=== PATIENT | male | born 1965 | race Caucasian/White ===

== ENCOUNTER 2017-08-22 18:19 | Emergency (ER) | payer OTHER ==
[~2017-08-22] VITALS: Ht 185.4 cm; Wt 134.3 kg
--- OUTSIDE RECORDS SUMMARY | 2017-08-22 18:22 | XMS REPORT | Clinical Summary ---
Author Author [facility] [place] [facility] Address Unknown Phone Unavailable Care Team Providers Care Commercial Counsel Name Role Phone Chin Lopez MD PCP Allergies Active Allergy Reactions Severity Noted Date Comments Tramadol 09/15/2016 Current Medications Prescription Sig. Disp. Refills Start End Date Status Date amoxicillin-pot TK 1 T PO BID 0 09/10/19 Active clavulanate (AUGMENTIN) 17 875-125 mg per tablet azithromycin (ZITHROMAX) TK 2 TS PO FOR 1 DAY THEN 0 06/28/19 Active 250 MG tablet TK 1 T PO D FOR 4 DAYS 17 bisoprolol-hydrochlorothi TK 1 T PO QD 0 08/16/19 Active azide (ZIAC) 2.5-6.25 mg 17 per tablet ONETOUCH VERIO strip test TEST ONCE D UTD 5 08/20/19 Active strips 17 ciprofloxacin (CIPRO) 500 TK 1 T PO BID FOR 10 DAYS 0 09/02/19 Active MG tablet 17 fenofibrate (LOFIBRA) 160 TK 1 T PO QD 2 08/03/19 Active MG tablet 17 gabapentin (NEURONTIN) TK 3 CS PO NIGHTLY 2 3 08/05/19 Active 300 mg capsule HOURS BEFORE BEDTIME 17 ONETOUCH DELICA LANCETS USE UTD 5 08/20/19 Active 30 gauge misc 17 levothyroxine (SYNTHROID, TK 1 T PO QD IN THE 0 08/16/19 Active LEVOXYL) 88 mcg tablet MORNING OES 17 TRINTELLIX 10 mg tablet TK 1 T PO QD 0 07/29/19 Active 17 rosuvastatin (CRESTOR) 10 TK 1 T PO QD 2 08/20/19 Active MG tablet 17 metroNIDAZOLE (FLAGYL) TK 1 T PO TID 0 09/10/19 Active 500 MG tablet 17 metFORMIN (GLUCOPHAGE) TK 1 T PO BID WC 2 08/20/19 Active 500 mg tablet 17 Active Problems Problem Noted Date Cancer of left kidney 10/13/2016 Left renal mass 09/15/2016 Encounters Date Type Specialty Care Team Description 10/13/2016 Office Visit Urology Vivienne Pino MD Cancer of left kidney (Primary Dx) 10/05/2016 [facility] General Surgery Vivienne Pino MD - Encounter Tori Perez MD 10/07/2016 10/03/2016 Orders Only General Surgery Vivienne Pino MD 09/15/2016 Office Visit Urology Vivienne Pino MD Left renal mass (Primary Dx) 09/01/2016 [facility] Internal Medicine Physician, Emergency, MD - Encounter Tori Perez MD 09/09/2016 after 08/21/2016 Family History Medical History Relation Name Comments Cancer Father Heart disease Mother Hyperlipidemia Mother Hypertension Mother Relation Name Status Comments Father Mother Social History Tobacco Use Types Packs/Day Years Used Date Never Smoker Alcohol Use Drinks/Week oz/Week Comments No Sex Assigned at Date Recorded Not on file Last Filed Vital Signs Vital Sign Reading Time Taken Blood Pressure 112/73 10/13/2016 2:47 PM CDT Pulse 79 10/13/2016 2:47 PM CDT Temperature 36.8 C (98.3 F) 10/13/2016 2:47 PM CDT Respiratory Rate - - Oxygen Saturation - - Inhaled Oxygen - - Concentration Weight 128 kg (282 lb 6.4 oz) 10/13/2016 2:47 PM CDT Height 185.4 cm (6' 1") 09/15/2016 8:49 AM CDT Body Mass Index 37.26 10/13/2016 2:47 PM CDT Plan of Treatment Health Maintenance Due Date Last Done Comments COLONOSCOPY 2016 INFLUENZA VACCINE 01/17/2017 Results * POC glucose (10/07/2016 11:27 AM) Only the most recent of 34 results within the time period is included. Component Value Ref Range POC glucose 173 (H) 65 - 100 mg/dL Comment: Meter ID: [id number] Multifocal Lens Inspector: Ana M Whitley Specimen Performing Laboratory [facility] DEPARTMENT OF PATHOLOGY AND GENOMIC MEDICINE [address] [place] [address] * Estimated GFR (10/07/2016 5:54 AM) Only the most recent of 11 results within the time period is included. Component Value Ref Range GFR Non Af Amer 71 mL/min/1.73 m2 GFR Af Amer 86 mL/min/1.73 m2 Comment: Chronic kidney disease: <60 mL/min/1.73m2 Kidney failure: <15 mL/min/1.73m2 The estimated GFR is calculated from the IDMS-traceable Modification of Diet in Renal Disease Equation. The accuracy of the calculation is poor when the creatinine is normal. Calculated values >90 mL/min/1.73m2 are not reported. This equation has not been validated in children (<18 years), women, the elderly (>70 years), or ethnic groups other than Caucasians and Americans. Specimen Performing Laboratory [facility] DEPARTMENT OF PATHOLOGY AND GENOMIC MEDICINE [address] [place] [address] * CBC with platelet and differential (10/07/2016 5:54 AM) Only the most recent of 10 results within the time period is included. Component Value Ref Range WBC 12.5 (H) 4.2 - 11.0 k/uL RBC 4.12 4.04 - 5.86 m/uL HGB 12.3 (L) 13.0 - 17.3 g/dL HCT 37.7 34.0 - 45.0 % MCV 91.5 80.0 - 98.0 fL MCH 29.9 27.0 - 34.0 pg MCHC 32.6 31.5 - 36.5 g/dL RDW - SD 50.2 37.0 - 51.0 fL MPV 9.7 7.4 - 10.4 fL Platelet count 286 150 - 400 k/uL Nucleated RBC 0.00 /100 WBC Neutrophils 77.6 (H) 36.0 - 66.0 % Lymphocytes 13.9 (L) 24.0 - 44.0 % Monocytes 6.6 (H) 0.0 - 6.0 % Eosinophils 1.2 0.0 - 6.0 % Basophils 0.2 0.0 - 1.2 % Immature granulocytes 0.5 0.0 - 1.0 % Specimen Performing Laboratory [facility] DEPARTMENT OF PATHOLOGY AND GENOMIC MEDICINE [address] [place] [address] * Phosphorus level (10/07/2016 5:54 AM) Component Value Ref Range Phosphorus 2.1 (L) 2.5 - 4.5 mg/dL Specimen Performing Laboratory [facility] DEPARTMENT OF PATHOLOGY AND GENOMIC MEDICINE [address] [place] [address] * Magnesium level (10/07/2016 5:54 AM) Component Value Ref Range Magnesium 2.00 1.60 - 2.40 mg/dL Specimen Performing Laboratory [facility] DEPARTMENT OF PATHOLOGY AND GENOMIC MEDICINE [facility] [place] [address] * Basic metabolic panel (10/07/2016 5:54 AM) Only the most recent of 9 results within the time period is included. Component Value Ref Range Sodium 136 135 - 150 mEq/L Potassium 3.8 3.5 - 5.0 mEq/L Chloride 101 100 - 109 mEq/L CO2 26 24 - 32 mmol/L Anion gap 9 7 - 15 mEq/L Comment: Starting from September , anion gap calculation no longer incorporates potassium. Please note the change. BUN 7 7 - 18 mg/dL Creatinine 1.1 0.8 - 1.5 mg/dL Glucose 131 (H) 65 - 100 mg/dL Calcium 8.4 (L) 8.6 - 10.7 mg/dL Specimen Performing Laboratory [facility] DEPARTMENT OF PATHOLOGY AND GENOMIC MEDICINE [facility] [place] [address] * Hemoglobin (10/05/2016 5:39 PM) Component Value Ref Range HGB 13.0 13.0 - 17.3 g/dL Specimen Performing Laboratory [facility] DEPARTMENT OF PATHOLOGY AND [facility] MEDICINE [facility] [place] [address] * Hematocrit (10/05/2016 5:39 PM) Component Value Ref Range HCT 40.7 34.0 - 45.0 % Specimen Performing Laboratory [facility] DEPARTMENT OF PATHOLOGY AND [facility] MEDICINE [facility] [place] [address] * Partial thromboplastin time, activated (10/05/2016 11:48 AM) Component Value Ref Range PTT 26.8 23.0 - 36.0 sec Comment: PTT therapeutic range for unfractionated heparin is 61.0-112.0 seconds which corresponds to Anti-Xa 0.3-0.7 U/ml. Note: Change in Panic Value The PTT Panic Value is changing from 110 sec. to 100 sec. due to new instrumentation and reagents. Correlation studies have been performed to validate this result. Specimen Performing Laboratory [facility] DEPARTMENT OF PATHOLOGY AND GENOMIC MEDICINE [facility] [place] [address] * Prothrombin time with INR (10/05/2016 11:48 AM) Only the most recent of 2 results within the time period is included. Component Value Ref Range Prothrombin time 12.5 12.0 - 15.0 sec INR 0.93 0.92 - 1.12 Comment: For patients on anticoagulant therapy, reference ranges below: Indication: INR Value Treatment of Venous Thrombosis, 2.0-3.0 pulmonary emboli, or prophylaxis of a venous thrombosis, or systemic emboli. High dose, high risk patients 3.0-4.5 with mechanical valves. NOTE: INR values over 3.0 are sometimes associated with gastrointestinal hemorrhage, especially values over 4.0. Specimen Performing Laboratory [facility] DEPARTMENT OF PATHOLOGY AND GENOMIC MEDICINE [address] [facility] [place] [address] * Type and screen (10/05/2016 11:48 AM) Component Value Ref Range ABO grouping O Rh type POS Antibody screen (gel) NEG Specimen Performing Laboratory [facility] DEPARTMENT OF PATHOLOGY AND GENOMIC MEDICINE [address] [place] [address] [place] [address] * Surgical pathology request (10/05/2016 9:33 AM) Specimen Performing Laboratory Other [facility] DEPARTMENT OF PATHOLOGY AND GENOMIC MEDICINE [address] [place], [place] [id number] * XR Chest 2 Vw (10/03/2016 11:35 AM) Specimen Performing Laboratory [facility] [address] [place] [id number] Narrative Examination:CHEST 2 VIEW PA AP LATERAL Clinical History: preop Comparison: March 03, 2014 Technique: Frontal and lateral views of the chest Impression: Subsegmental basilar atelectasis. Lungs otherwise clear. No pulmonary edema or pleural effusion. The heart is normal in size. Bones are grossly intact. Prominent lower thoracic kyphosis is similar to prior. [facility]-[id number] Procedure Note Interface, Radiology Conversion - 10/03/2016 11:53 AM CDT Examination: CHEST 2 VIEW PA AP LATERAL Clinical History: preop Comparison: March 03, 2014 Technique: Frontal and lateral views of the chest Impression: Subsegmental basilar atelectasis. Lungs otherwise clear. No pulmonary edema or pleural effusion. The heart is normal in size. Bones are grossly intact. Prominent lower thoracic kyphosis is similar to prior. [facility]-[id number] * Urinalysis, automated with microscopy (10/03/2016 11:12 AM) Component Value Ref Range Color, UA Yellow Appearance, UA Clear Specific gravity, UA 1.017 1.001 - 1.035 pH, UA 5.0 5.0 - 8.5 Protein, UA Negative Negative Glucose, UA Negative Negative Ketones, UA Negative Negative Bilirubin, UA Negative Negative Blood, UA Negative Negative Nitrite, UA Negative Negative Urobilinogen, UA Negative <2.0 Leukocyte esterase, UA Trace (A) Negative Epithelial cells, UA Few /HPF WBC, UA 1 0 - 1 /HPF RBC, UA 4 (H) 0 - 1 /HPF Bacteria, UA Trace None seen Yeast, UA None seen Yeast with pseudohyphae, None seen UA Specimen Performing Laboratory [facility] DEPARTMENT OF PATHOLOGY AND GENOMIC MEDICINE [address] [facility] [place] [address] * CBC hemogram (10/03/2016 11:12 AM) Component Value Ref Range WBC 7.9 4.2 - 11.0 k/uL RBC 4.63 4.04 - 5.86 m/uL HGB 13.5 13.0 - 17.3 g/dL HCT 41.1 34.0 - 45.0 % MCV 88.8 80.0 - 98.0 fL MCH 29.2 27.0 - 34.0 pg MCHC 32.8 31.5 - 36.5 g/dL RDW - SD 46.2 37.0 - 51.0 fL MPV 10.5 (H) 7.4 - 10.4 fL Platelet count 299 150 - 400 k/uL Nucleated RBC 0.00 /100 WBC Specimen Performing Laboratory [facility] DEPARTMENT OF PATHOLOGY AND GENOMIC MEDICINE [address] [facility] [place] [address] * ECG 12 lead (10/03/2016 11:07 AM) Component Value Ref Range Ventricular rate 71 Atrial rate 71 NC interval 150 QRSD interval 100 QT interval 396 QTC interval 430 P axis 1 32 QRS axis 1 -6 T wave axis 18 EKG impression Normal sinus rhythm-Incomplete right bundle branch block-Borderline ECG-In automated comparison with ECG of 04-DEC-2008 11:15,-No significant change was found- Specimen Performing Laboratory [facility] [address] [place] [id number] * Manual differential (09/09/2016 6:24 AM) Only the most recent of 2 results within the time period is included. Component Value Ref Range Manual differential PERFORMED Neutrophils 78.0 (H) 36.0 - 66.0 % Lymphocytes 13.0 (L) 24.0 - 44.0 % Monocytes 6.0 0.0 - 6.0 % Eosinophils 2.0 0.0 - 6.0 % Basophils 0.0 0.0 - 1.2 % Metamyelocytes 0 0 - 1 % Promyelocytes 0 0 - 1 % Reactive lymphocytes 1.0 Platelet slide review Increased (A) Anisocytosis Slight Specimen Performing Laboratory [facility] DEPARTMENT OF PATHOLOGY AND GENOMIC MEDICINE [address] [place] [address] * C difficile toxin gene, ANDREAS (PCR) (09/05/2016 7:50 AM) Component Value Ref Range Clostridium difficile Positive for C. difficile toxin toxin Specimen Performing Laboratory Other [facility] DEPARTMENT OF PATHOLOGY AND GENOMIC MEDICINE [address] [place] [id number] Narrative Specimen Site is : : Nonpreserved Specimen Source is : Stool * CT Abdomen Pelvis W Contrast (09/03/2016 4:03 PM) Specimen Performing Laboratory [address] [address] Narrative EXAMINATION:CT ABDOMEN W PELVIS W CLINICAL HISTORY:ruptured sigmoid diverticulitis TECHNIQUE: Multiple axial images of the abdomen and pelvis were obtained following intravenous administration of iodinated contrast. Sagittal and coronal computerized reformatted images were also obtained. CT imaging was performed with iterative reconstruction techniques and/or automated exposure control to reduce radiation dose. COMPARISON:None. IMPRESSION: 1.There are findings of diverticulitis with perforation. Moderate segmental thickening of the sigmoid colon, perisigmoid mesenteric edema, and several small gas loculations in the adjacent sigmoid mesentery, are the associated findings. There is no obstruction or abscess. The stomach, small bowel, and appendix are normal. 2.There is diffuse fatty liver infiltration, but no focal liver lesion. The spleen, pancreas, gallbladder, adrenal glands, kidneys, ureters, and urinary bladder are unremarkable. 3.There is no significant lymphadenopathy. Vascular structures are unremarkable. 4.There is no significant skeletal finding. [facility]-[id number] Procedure Note Hm Interface, Radiology Conversion - 09/03/2016 5:38 PM CDT EXAMINATION: CT ABDOMEN W PELVIS W CLINICAL HISTORY: ruptured sigmoid diverticulitis TECHNIQUE: Multiple axial images of the abdomen and pelvis were obtained following intravenous administration of iodinated contrast. Sagittal and coronal computerized reformatted images were also obtained. CT imaging was performed with iterative reconstruction techniques and/or automated exposure control to reduce radiation dose. COMPARISON: None. IMPRESSION: 1.There are findings of diverticulitis with perforation. Moderate segmental thickening of the sigmoid colon, perisigmoid mesenteric edema, and several small gas loculations in the adjacent sigmoid mesentery, are the associated findings. There is no obstruction or abscess. The stomach, small bowel, and appendix are normal. 2.There is diffuse fatty liver infiltration, but no focal liver lesion. The spleen, pancreas, gallbladder, adrenal glands, kidneys, ureters, and urinary bladder are unremarkable. 3.There is no significant lymphadenopathy. Vascular structures are unremarkable. 4.There is no significant skeletal finding. [facility]-[id number] * Hemoglobin A1c (09/02/2016 4:18 AM) Component Value Ref Range Hemoglobin A1C 7.2 (H) 4.0 - 6.0 % Comment: Less than 6% - Goal of therapy for Type II Diabetes Less than 7%-Goal of therapy for Type I Diabetes Less than 8%-Acceptable control for Type I or Type I I Diabetes Greater than 8%- Unacceptable control; action indicated. (A [id number]) Specimen Performing Laboratory [facility] DEPARTMENT OF PATHOLOGY AND GENOMIC MEDIC[place] [address] * Lipid panel (09/02/2016 4:18 AM) Component Value Ref Range Cholesterol 130 120 - 200 mg/dL Triglycerides 104 50 - 150 mg/dL HDL cholesterol 37 (L) 40 - 60 mg/dL LDL cholesterol 79Comment: Result obtained by direct LDL mg/dL measurement Specimen Performing Laboratory [facility] DEPARTMENT OF PATHOLOGY AND GENOMIC MEDICINE [place] [address] * Comprehensive metabolic panel (09/02/2016 4:18 AM) Only the most recent of 2 results within the time period is included. Component Value Ref Range Sodium 136 135 - 150 mEq/L Potassium 3.5 3.5 - 5.0 mEq/L Chloride 100 100 - 109 mEq/L CO2 24 24 - 32 mmol/L Anion gap 12 7 - 15 mEq/L Comment: Starting from September , anion gap calculation no longer incorporates potassium. Please note the change. BUN 12 7 - 18 mg/dL Creatinine 1.2 0.8 - 1.5 mg/dL Glucose 98 65 - 100 mg/dL Calcium 8.1 (L) 8.6 - 10.7 mg/dL Albumin 3.4 3.2 - 5.0 g/dL Protein 7.1 6.3 - 8.2 g/dL A/G ratio 0.9 0.7 - 3.8 Alkaline phosphatase 52 30 - 120 U/L AST 15 15 - 37 U/L ALT 27 (L) 30 - 65 U/L Total bilirubin 0.8 0.2 - 1.2 mg/dL Specimen Performing Laboratory [facility] DEPARTMENT OF PATHOLOGY AND GENOMIC MEDICINE [address] [place] [address] * Blood culture, aerobic & anaerobic (09/01/2016 6:56 PM) Only the most recent of 2 results within the time period is included. Component Value Ref Range Blood culture isolate No growth after 5 days of incubation. Specimen Performing Laboratory Other - Blood [facility] DEPARTMENT OF PATHOLOGY AND GENOMIC MEDICINE [address] [place] [address] Narrative Specimen Site is : Antecubital Arm Left Specimen Source is : Blood * Lactic acid level (09/01/2016 6:52 PM) Component Value Ref Range Lactic acid 1.3 0.5 - 2.2 mmol/L Specimen Performing Laboratory [facility] DEPARTMENT OF PATHOLOGY AND GENOMIC MEDICINE [address] [place] [address] [place] [address] * Urine culture screen (09/01/2016 5:50 PM) Component Value Ref Range Color, UA Yellow Appearance, UA Clear Specific gravity, UA >1.060 (H) 1.001 - 1.035 pH, UA 5.0 5.0 - 8.5 Protein, UA Negative Negative Glucose, UA 1+ (A) Negative Ketones, UA Negative Negative Bilirubin, UA Negative Negative Blood, UA Trace (A) Negative Nitrite, UA Negative Negative Urobilinogen, UA Negative <2.0 Leukocyte esterase, UA Negative Negative WBC, UA <1 0 - 1 /HPF RBC, UA <1 0 - 1 /HPF Bacteria, UA None seen None seen Yeast, UA None seen Yeast with pseudohyphae, None seen UA Specimen Performing Laboratory [facility] DEPARTMENT OF PATHOLOGY AND GENOMIC MEDICINE [address] [place] [address] after 08/21/2016 Insurance Payer Benefit Subscriber ID Type Phone Address Plan / Group [facility] xxxxxxxxx HMO/PPO THCARE CHOICE/[place] [address]
[2017-08-22 18:57] LABS: BASOPHILS # (AUTO) 0.1 (0.0-0.1); BASOPHILS % 0.6 % (0.0-1.0); EOSINOPHILS # (AUTO) 0.2 (0.0-0.4); EOSINOPHILS % 2.3 % (0.0-6.0); HEMATOCRIT 46.2 % (38.2-49.6); LYMPHOCYTES # (AUTO) 2.4 (1.0-3.2); LYMPHOCYTES % 24.9 % (18.0-39.1); MEAN CORPUSCULAR HEMOGLOBIN 26.3 pg (28-32); MEAN CORPUSCULAR HGB CONC 32.5 g/dL (31-35); MEAN CORPUSCULAR VOLUME 80.9 fL (81-99); MONOCYTES # (AUTO) 0.7 (0.2-0.8); MONOCYTES % 7.6 % (4.4-11.3); NEUTROPHILS # (AUTO) 6.2 (2.1-6.9); NEUTROPHILS % 64.2 % (38.7-80.0); PLATELET COUNT 416 x10e3/uL (140-360); RED BLOOD COUNT 5.71 x10e6/uL (4.3-5.7); RED CELL DISTRIBUTION WIDTH 14.6 % (11.7-14.4)
[2017-08-22 19:05] LABS: INR 1.03; PARTIAL THROMBOPLASTIN TIME 22.5 seconds (23.8-35.5); PROTHROMBIN TIME 12.7 seconds (11.9-14.5)
[2017-08-22 19:15] LABS: ALANINE AMINOTRANSFERASE 32 IU/L (0-55); ALBUMIN 4.3 g/dL (3.5-5.0); ALBUMIN/GLOBULIN RATIO 1.1 (0.8-2.0); ALKALINE PHOSPHATASE 67 IU/L (40-150); ANION GAP 15.9 mmol/L (8-16); BLOOD UREA NITROGEN 21 mg/dL (7-26); BUN/CREATININE RATIO 17 (6-25); CALCIUM 9.2 mg/dL (8.4-10.2); CARBON DIOXIDE 24 mmol/L (22-29); CHLORIDE 101 mmol/L (98-107); CREATINE KINASE 209 IU/L (30-200); CREATININE, SERUM 1.25 mg/dL (0.72-1.25); EST GLOMERULAR FILTRATION RATE > 60 ML/MIN (60-); GLUCOSE 88 mg/dL (74-118); POTASSIUM 3.9 mmol/L (3.5-5.1); SODIUM 137 mmol/L (136-145)
--- NOTE | 2017-08-22 19:35 | Diagnostic Imaging Report ---
A single frontal view of the chest. HISTORY: Chest pain COMPARISON: None available. DISCUSSION: Portable technique, limits sensitivity of the exam. Tubes/Lines: None Lungs and pleura: Mild left basilar minimal right basilar atelectasis versus scarring. No evidence of a consolidative pneumonia or pulmonary alveolar edema. No definite pleural effusion or pneumothorax is identified. Heart and mediastinum: The cardiomediastinal silhouette appears unremarkable. Bones: No acute osseous lesion is identified, given this limited exam. IMPRESSION: 1. Mild left and minimal right basilar atelectasis versus scarring. 2. Otherwise, unremarkable. Signed by: Dr. Gulshan Davies D.O., M.M.M. on 08/22/2017 7:31 PM
[2017-08-22] MEDS ORDERED: LEVOTHYROXINE50 MCG PO (19:39)
[2017-08-22] MEDS ORDERED: CRESTOR10 MG PO (19:39)
[2017-08-22] MEDS ORDERED: BP MED (19:39)
[2017-08-22] MEDS ORDERED: GABAPENTIN300 MG PO (19:39)
[2017-08-22] MEDS ORDERED: OMEPRAZOLE40 MG PO (19:39)
== END 2017-08-22 19:54 | disposition home or self-care (01) ==
LOC: ER 18:19
DX: R07.89 Other chest pain (principal); I10 Essential (primary) hypertension; E11.9 Type 2 diabetes mellitus without complications; E03.9 Hypothyroidism, unspecified; E78.5 Hyperlipidemia, unspecified; F41.9 Anxiety disorder, unspecified; Z85.528 Personal history of other malignant neoplasm of kidney
CPT/HCPCS: 36415; 71045; 80053; 82550; 82553; 84484; 85025; 85610; 85730; 93005; 99284

== ENCOUNTER 2017-11-27 13:43 | Emergency (ER) | payer OTHER ==
[~2017-11-27] VITALS: Ht 185.4 cm; Wt 134.3 kg
[~2017-11-27 13:43] MED LIST: BP MED; CRESTOR10 MG PO; GABAPENTIN300 MG PO; LEVOTHYROXINE50 MCG PO; OMEPRAZOLE40 MG PO
--- OUTSIDE RECORDS SUMMARY | 2017-11-27 13:46 | XMS REPORT | Clinical Summary ---
Author Author [facility] Organization [place] [facility] Address Unknown Phone Unavailable Care Team Providers Care Addictions Counselor Name Role Phone Chin Lopez MD PCP [...] left kidney 10/13/2016 Left renal mass 09/15/2016 Family History Medical History Relation Name Comments Cancer Father Heart disease Mother Hyperlipidemia Mother Hypertension Mother Relation Name Status Comments Father Mother Social History Tobacco Use Types Packs/Day Years Used Date Never Smoker Alcohol Use Drinks/Week oz/Week Comments No Sex Assigned at Date Recorded Not on file Last Filed Vital Signs Not on file Plan of Treatment Health Maintenance Due Date Last Done Comments COLON CANCER SCREENING 2016 SHINGRIX VACCINE (#1) 2016 INFLUENZA VACCINE 01/17/2018 Results Not on fileafter 11/26/2016 Insurance Payer Benefit Subscriber ID Type Phone Address Plan / Group [facility] xxxxxxxxx HMO/PPO THCARE CHOICE/[place] [address]
--- OUTSIDE RECORDS SUMMARY | 2017-11-27 13:46 | XMS REPORT | Continuity of Care Document ---
Author Author [facility] Organization [facility] Address [address] [place] [address] Phone Unavailable Care Team Providers Care Archaeology Professor Name Role Phone GUILLERMO LE MD PCP Advance Directives No advance directive information available. Problems No problem information available. Medications Current Home Medications Medication Dose Units Route Directions Days Qty Instructions Start Date Bp Med Gabapentin 300 Mg Capsule 900 Mg Oral Bedtime 60 Cap Levothyroxine Sodium 50 Mcg Tablet 100 Mcg Oral Daily 30 Tab Omeprazole 40 Mg Capsule.dr 40 Mg Oral Daily Rosuvastatin Calcium (Crestor) 10 Mg Tab 10 Mg Oral Daily THERAPEUTICALLY SUBSTITUTED WITH SIMVASTATIN 40MG Social History Smoking Status Start Date Stop Date Never Smoker Hospital Discharge Instructions No hospital discharge instruction information available. Plan of Care Discharge Date 08/22/17 7:54pm Disposition HOME, SELF-CARE Condition at Discharge Stable Instructions/Education Provided Chest Pain - Noncardiac Forms Provided Work/School Excuse Prescriptions See Medication Section Referrals GUILLERMO LE MD Address: [address] [place] [address] Additional Instructions/Education FOLLOW-UP WITH YOUR CYBER SECURITY SYSTEMS ENGINEER, CALL IN THE MORNING Functional Status No functional status information available. Allergies, Adverse Reactions, Alerts Allergen Type Severity Reaction Status Last Updated Tramadol Allergy Mild MIGRAINES Active 08/22/17 Immunizations No immunization information available. Vital Signs Acute Vital Signs Vital Response Date/Time Height 6 ft 1 in 08/22/2017 6:28pm Weight 296 lb 08/22/2017 6:28pm Body Mass Index 39.1 kg/m^2 08/22/2017 6:28pm Results Laboratory Results Test Name Result Units Flags Reference Collection Date/Time Result Date/ Time Comments White Blood Count 9.68 x10e3/uL 4.8-10.8 08/22/2017 6:45pm 08/22/2017 6 :57pm Red Blood Count 5.71 x10e6/uL H 4.3-5.7 08/22/2017 6:45pm 08/22/2017 6: 57pm Hemoglobin 15.0 g/dL 14.0-18.0 08/22/2017 6:45pm 08/22/2017 6:57pm Hematocrit 46.2 % 38.2-49.6 08/22/2017 6:45pm 08/22/2017 6:57pm Mean Corpuscular Volume 80.9 fL L 81-99 08/22/2017 6:45pm 08/22/2017 6: 57pm Mean Corpuscular Hemoglobin 26.3 pg L 28-32 08/22/2017 6:45pm 2017 6:57pm Mean Corpuscular Hemoglobin Concent 32.5 g/dL 31-35 08/22/2017 6:45pm 08/22/2017 6:57pm Red Cell Distribution Width 14.6 % H 11.7-14.4 08/22/2017 6:45pm 2017 6:57pm Platelet Count 416 x10e3/uL H 140-360 08/22/2017 6:45pm 08/22/2017 6: 57pm Neutrophils (%) (Auto) 64.2 % 38.7-80.0 08/22/2017 6:45pm 08/22/2017 6: 57pm Lymphocytes (%) (Auto) 24.9 % 18.0-39.1 08/22/2017 6:45pm 08/22/2017 6: 57pm Monocytes (%) (Auto) 7.6 % 4.4-11.3 08/22/2017 6:45pm 08/22/2017 6: 57pm Eosinophils (%) (Auto) 2.3 % 0.0-6.0 08/22/2017 6:45pm 08/22/2017 6: 57pm Basophils (%) (Auto) 0.6 % 0.0-1.0 08/22/2017 6:45pm 08/22/2017 6:57pm IM GRANULOCYTES % 0.4 % 0.0-1.0 08/22/2017 6:45pm 08/22/2017 6:57pm Neutrophils # (Auto) 6.2 2.1-6.9 08/22/2017 6:45pm 08/22/2017 6:57pm Lymphocytes # (Auto) 2.4 1.0-3.2 08/22/2017 6:45pm 08/22/2017 6:57pm Monocytes # (Auto) 0.7 0.2-0.8 08/22/2017 6:45pm 08/22/2017 6:57pm Eosinophils # (Auto) 0.2 0.0-0.4 08/22/2017 6:45pm 08/22/2017 6:57pm Basophils # (Auto) 0.1 0.0-0.1 08/22/2017 6:45pm 08/22/2017 6:57pm Absolute Immature Granulocyte (auto 0.04 x10e3/uL 0-0.1 08/22/2017 6: 45pm 08/22/2017 6:57pm Prothrombin Time 12.7 seconds 11.9-14.5 08/22/2017 6:45pm 08/22/2017 7: 09pm Prothromb Time International Ratio 1.03 08/22/2017 6:45pm 2017 7:09pm Oral Anticoagulant Therapy INR Values: 1. Low Intensity Therapy 1.5 - 2.0 2. Moderate Intensity Therapy 2.0 - 3.0 3. High Intensity Therapy(1) 2.5 - 3.5 4. High Intensity Therapy(2) 3.0 - 4.0 5. Panic Value INR > 5.0 Activated Partial Thromboplast Time 22.5 seconds L 23.8-35.5 08/22/2017 6 :45pm 08/22/2017 7:09pm Sodium Level 137 mmol/L 136-145 08/22/2017 6:45pm 08/22/2017 7:16pm Potassium Level 3.9 mmol/L 3.5-5.1 08/22/2017 6:45pm 08/22/2017 7:16pm Chloride Level 101 mmol/L 98-107 08/22/2017 6:45pm 08/22/2017 7:16pm Carbon Dioxide Level 24 mmol/L 22-29 08/22/2017 6:45pm 08/22/2017 7: 16pm Anion Gap 15.9 mmol/L 8-16 08/22/2017 6:45pm 08/22/2017 7:16pm Blood Urea Nitrogen 21 mg/dL 7-26 08/22/2017 6:45pm 08/22/2017 7:16pm Creatinine 1.25 mg/dL 0.72-1.25 08/22/2017 6:45pm 08/22/2017 7:16pm BUN/Creatinine Ratio 17 6-25 08/22/2017 6:45pm 08/22/2017 7:16pm Estimat Glomerular Filtration Rate > 60 ML/MIN 60- 08/22/2017 6:45pm 7:16pm Ranges were taken from the National Kidney Disease Education Program and the National Kid[employer] literature. Reference ranges: 60 or greater: Normal 16-59 (for 3 consecutive months): Chronic kidney disease 15 or less: Kidney failure Glucose Level 88 mg/dL 74-118 08/22/2017 6:45pm 08/22/2017 7:16pm Calcium Level 9.2 mg/dL 8.4-10.2 08/22/2017 6:45pm 08/22/2017 7:16pm Total Bilirubin 0.5 mg/dL 0.2-1.2 08/22/2017 6:45pm 08/22/2017 7:16pm Aspartate Amino Transf (AST/SGOT) 26 IU/L 5-34 08/22/2017 6:45pm 2017 7:16pm Alanine Aminotransferase (ALT/SGPT) 32 IU/L 0-55 08/22/2017 6:45pm 11/2017 7:16pm Total Protein 8.3 g/dL H 6.5-8.1 08/22/2017 6:45pm 08/22/2017 7:16pm Albumin 4.3 g/dL 3.5-5.0 08/22/2017 6:45pm 08/22/2017 7:16pm Globulin 4.0 g/dL H 2.3-3.5 08/22/2017 6:45pm 08/22/2017 7:16pm Albumin/Globulin Ratio 1.1 0.8-2.0 08/22/2017 6:45pm 08/22/2017 7: 16pm Alkaline Phosphatase 67 IU/L 40-150 08/22/2017 6:45pm 08/22/2017 7: 16pm Creatine Kinase 209 IU/L H 30-200 08/22/2017 6:45pm 08/22/2017 7:16pm Creatine Kinase MB 4.20 ng/mL 0-5.0 08/22/2017 6:45pm 08/22/2017 7: 24pm Troponin I 0.001 ng/mL 0-0.300 08/22/2017 6:45pm 08/22/2017 7:24pm Procedures Procedure Status Date Provider(s) X-ray of chest, single view Active 08/22/17 FRANCI CRAMER MD Encounters Encounter Location Arrival/Admit Date Discharge/Depart Date Attending Provider Departed Emergency Room [facility] 08/22/17 6:19pm 7:54pm FRANCI CRAMER MD
--- OUTSIDE RECORDS SUMMARY | 2017-11-27 13:46 | XMS REPORT ---
Author Author [facility] Address Unknown Phone Unavailable Care Team Providers Care Rope Coiling Machine Operator Name Role Phone FRANCI CRAMER Unavailable Unavailable Problems This patient has no known problems. Allergies, Adverse Reactions, Alerts This patient has no known allergies or adverse reactions. Medications This patient has no known medications. Results Test Description Test Time Test Comments Text Results Atomic Results Result Comments CHEST SINGLE (NOT PORTABLE) [place] [id number] Patient Name: VIRAL MARTINEZ MR #: [id number] : 1965 Age/Sex: 51/M Req #: [id number] Adm Physician: Ordered by: FRANCI CRAMER MD Report #: [id number] Location: ER Room/Bed: Procedure: [id number] DX/CHEST SINGLE (NOT PORTABLE) Exam Date: 08/22/17 Exam Time: 1909 REPORT STATUS: Signed A single frontal view of the chest. HISTORY: Chest pain COMPARISON: None available. DISCUSSION: Portable technique, limits sensitivity of the exam. Tubes/Lines: None Lungs and pleura: Mild left basilar minimal right basilar atelectasis versus scarring. No evidence of a consolidative pneumonia or pulmonary alveolar edema. No definite pleural effusion or pneumothorax is identified. Heart and mediastinum: The cardiomediastinal silhouette appears unremarkable. Bones: No acute osseous lesion is identified, given this limited exam. IMPRESSION: 1. Mild left and minimal right basilar atelectasis versus scarring. 2. Otherwise, unremarkable. Signed by: Dr. Basia Davies D.O., M.M.M. on 08/22/2017 7:31 PM Dictated By: BASIA DAVIES DO 30 Transcribed By: MAYA on 08/22/171930 COPY TO: FRANCI CRAMER MD
--- NOTE | 2017-11-27 14:30 | Diagnostic Imaging Report ---
PROCEDURE:CHEST 2 VIEWS TECHNIQUE:PA and lateral chest totaling 3 radiographs INDICATION:Cough COMPARISON:Patients [facility], DX, CHEST SINGLE (NOT PORTABLE), 08/22/2017, 19:16. FINDINGS: Small focus of peripheral airspace opacity in the lingula similar to August 2017. Lungs otherwise clear. No pleural effusions. Normal heart size, mediastinal contour and pulmonary vasculature. Intact skeleton. CONCLUSION: Peripheral lingular airspace opacity similar to August 2017. This likely represents scar, less likely developing pneumonia. Dictated by: Aguila Le M.D. on 11/27/2017 at 14:34 Electronically approved by: Aguila Le M.D. on 11/27/2017 at 14:34
[2017-11-27] MEDS ORDERED: PREDNISONE 20 MG TAB PO ONE (16:00)
[2017-11-27 16:05] VITALS: BP 133/84
== END 2017-11-27 16:16 | disposition home or self-care (01) ==
LOC: ER 13:43
DX: J20.9 Acute bronchitis, unspecified (principal); I10 Essential (primary) hypertension; E03.9 Hypothyroidism, unspecified
CPT/HCPCS: 71046; 99284

== ENCOUNTER → 2020-01-23 | Day surgery (SDC) | payer OTHER ==
[2020-01-20 14:58] LABS: BASOPHILS # (AUTO) 0.1 (0.0-0.1); BASOPHILS % 0.4 % (0.0-1.0); EOSINOPHILS # (AUTO) 0.3 (0.0-0.4); EOSINOPHILS % 2.8 % (0.0-6.0); HEMATOCRIT 44.1 % (38.2-49.6); HEMOGLOBIN 14.4 g/dL (14.0-18.0); LYMPHOCYTES # (AUTO) 2.7 (1.0-3.2); LYMPHOCYTES % 23.6 % (18.0-39.1); MEAN CORPUSCULAR HEMOGLOBIN 29.4 pg (28-32); MEAN CORPUSCULAR HGB CONC 32.7 g/dL (31-35); MEAN CORPUSCULAR VOLUME 90.2 fL (81-99); MONOCYTES # (AUTO) 0.7 (0.2-0.8); MONOCYTES % 6.1 % (4.4-11.3); NEUTROPHILS # (AUTO) 7.5 (2.1-6.9); NEUTROPHILS % 66.6 % (38.7-80.0); PLATELET COUNT 340 x10e3/uL (140-360); RED BLOOD COUNT 4.89 x10e6/uL (4.3-5.7); RED CELL DISTRIBUTION WIDTH 13.4 % (11.7-14.4)
[~2020-01-23] MED LIST changes: +BISOPROLOL-HCT1 EACH PO; +ETOMIDATE 40 MG/ 20ML VIAL IV ONE; +FENTANYL CITRATE/PF 100MCG/2 ML INJ ONE; +FLUOXETINE HCL10 MG PO; +LIDOCAINE HCL 1% 2 ML AMP ONE; +MIDAZOLAM HCL 2 MG/2 ML VIAL ONE; +PROPOFOL IV EMULSION 10 MG/ML 20 ML VIAL ONE; +ROPINIROLE HC0.25 MG PO; +ROPINIROLE HCL0.5 MG PO; +TRULICITY SQ
[2020-01-23 10:25] VITALS: BP 134/93
--- NOTE | 2020-01-23 12:43 | Operative Report ---
DATE OF PROCEDURE: SURGEON: Mal Botello MD PROCEDURE PERFORMED: Colonoscopy. PREOPERATIVE DIAGNOSIS: History of colon polyps. POSTOPERATIVE DIAGNOSIS: History of colon polyps. PREOPERATIVE MEDICATIONS: Consisted of IV sedation. DESCRIPTION OF PROCEDURE: Using an Olympus Roboinvest video colonoscope, it was inserted into the patient's rectum and advanced without difficulty to the level of cecum. The colon was studied from that level back down to the rectum. In the mid sigmoid, there was evidence of prior surgery. The anastomosis was intact and was patent. The colonoscope was drawn from the patient's rectum and the procedure was ended. In conclusion, we have no new colon polyps found. Mal Botello MD SAF/MODL /[id number]
== END | disposition home or self-care (01) ==
LOC: OR 06:15
PROVIDERS: ATTEND Internal Medicine Gastroenterology
DX: R10.32 Left lower quadrant pain (principal); Z86.010 Personal history of colon polyps; K21.9 Gastro-esophageal reflux disease without esophagitis; K57.92 Diverticulitis of intestine, part unspecified, without perforation or abscess without bleeding; G47.33 Obstructive sleep apnea (adult) (pediatric); J44.9 Chronic obstructive pulmonary disease, unspecified; I10 Essential (primary) hypertension; E03.9 Hypothyroidism, unspecified; E78.00 Pure hypercholesterolemia, unspecified; K76.0 Fatty (change of) liver, not elsewhere classified; E11.9 Type 2 diabetes mellitus without complications; E66.01 Morbid (severe) obesity due to excess calories; F32.9 Major depressive disorder, single episode, unspecified; Z88.6 Allergy status to analgesic agent; Z01.810 Encounter for preprocedural cardiovascular examination; Z01.812 Encounter for preprocedural laboratory examination; Z11.59 Encounter for screening for other viral diseases; Z79.84 Long term (current) use of oral hypoglycemic drugs; Z68.41 Body mass index [BMI] 40.0-44.9, adult; Z80.0 Family history of malignant neoplasm of digestive organs
CPT/HCPCS: 36415 ×2; 45378; 82948; 85025; 93005; J2001; J2250; J2704; J3010; U0002